=== PATIENT | female | born 1975 | race Caucasian/White ===

== ENCOUNTER 2022-10-05 22:41 | Emergency (ER) | payer BC, SELFPAY ==
--- NOTE | 2022-10-05 22:45 | ED.DENTAL ---
HPI - Dental/Oral General Chief complaint: Dental/Oral Stated complaint: Upper L tooth Ache Time Seen by Provider: 10/05/22 22:44 Source: patient and RN notes reviewed Mode of arrival: ambulatory Limitations: no limitations History of Present Illness Complaint: tooth pain Location: Tooth # (12) Onset (ago): day(s) (4) Duration: constant Severity: moderate Relieving factors: other ( Tylenol) Exacerbating factors: chewing Related Data Allergies Allergy/AdvReac Type Severity Reaction Status Date / Time acetaminophen Allergy Other Verified 10/05/22 22:46 [From Darvocet-N] propoxyphene Allergy Other Verified 10/05/22 22:46 [From Darvocet-N] sulfamethoxazole AdvReac Other Verified 10/05/22 22:46 Review of Systems Review of Systems: All systems reviewed & are unremarkable except as noted in HPI and below PMFSH Past Medical History Medical History (Updated 10/06/22 @ 00:00 by Flora Guadalupe) Kidney stones Thrombocytopenia Surgical History Surgical History (Updated 10/05/22 @ 22:46 by Grant Lezama MD) H/O lithotripsy History of bilateral tubal ligation Social History Social History (Updated 10/05/22 @ 22:46 by Grant Lezama MD) Smoking status: Current every day smoker Alcohol intake: current Exam Const: General: healthy appearing, no acute distress and alert Nutritional Appearance: well nourished Orientation/consciousness: patient oriented x3 Limitations: no limitations HENMT: Head: normal to inspection Ears: external ears normal Face/Nose/Sinus: Normal external nose present Face and sinus: normal facial exam Mouth: Yes moist mucous membranes Teeth image: 1. dental caries with partial tooth loss surrounding erythema mild edema of the gumline Throat: posterior oropharynx normal Eyes: Conjunctivae: conjunctivae normal Pupils: Equal, round and reactive pupils present EOM: EOMs intact bilaterally Neck: Neck: normal visual inspection Resp: Effort & Inspection: normal respiratory effort Auscultation: clear to auscultation bilaterally Cardio: Rate: regular rate Rhythm: regular rhythm GI: GI Palp: Yes Soft to palpation and No Tenderness to palpation present (GI) Auscultation: normal bowel sounds Back/Spine/Pelvis: Cervical Spine: cervical ROM normal Thoracic/Lumbar Spine: thoraco-lumbar ROM normal Skin: General skin exam: normal color Rashes: no rashes Neuro: General: patient oriented x3, moves all extremities, no focal motor deficits and CN's II-XI intact bilaterally Speech: normal speech Gait exam (Neuro): Normal gait present Extrem: General: normal to inspection and no clubbing, cyanosis or edema Psych: Mental Status: mental status grossly normal Affect: normal affect Attitude: cooperative MDM - Dental/Oral Differential Diagnosis Differential diagnosis: Likely dental caries, dental abscess and fracture of tooth Discharge Plan Discharge Clinical Impression: Dental caries Patient Disposition: Home, Self-Care Condition: Stable Instructions: Antibiotic Form, Toothache (ED) Additional Instructions: try Advil or Aleve for your dental pain instead of just plain Tylenol. See a dentist to have your tooth extracted. Prescriptions: New amoxicillin 500 mg capsule 500 mg PO TID 10 Days Qty: 30 0RF Follow-up/Referrals: UNKNOWN,DOCTOR [Primary Care Provider] - Time of Disposition: 22:56
[2022-10-05 22:46] VITALS: BP 142/87; PULSE 82; RESP 20; TEMP 37.2; O2SAT 96
[2022-10-05] MEDS: KETOROLAC 30 MG/ML VIAL (*BKC) IM (22:46)
[2022-10-05 23:03] VITALS: BP 137/87; PULSE 72; RESP 20; TEMP 36.6; O2SAT 95
== END 2022-10-05 23:05 | disposition home or self-care (01) ==
PROVIDERS: Emergency Provider Emergency Medicine
DX: K02.9 Dental caries, unspecified (principal); F17.200 Nicotine dependence, unspecified, uncomplicated
CPT/HCPCS: 96372; 99283; J1885